=== PATIENT | female | born 1970 | race Caucasian/White ===

== ENCOUNTER 2016-11-01 10:23 | Emergency (ER) | payer BC ==
[2016-11-01 10:36] VITALS: BP 114/84
[2016-11-01 11:18] LABS: Urine Bacteria Absent (Absent); Urine Bilirubin Negative (Negative); Urine Glucose Negative (Negative); Urine Nitrite Negative (Negative)
--- NOTE | 2016-11-01 11:31 | ED ---
GI/ HPI - HPI Summary HPI Summary: Patient presents with urgency, frequency, burning upon urination for 3 days. She has been trying to treat it with yogurt. Dark colored, cloudy urine. Denies flank pain. Denies diaphoresis and chills. Denies known fever. No abnormal vaginal discharge reported. Otherwise healthy. She states she had this a few years ago and never had it treated and ended up with a kidney infection which needed IV abx. She denies any other symptoms. Afebrile on arrival to ED. - History of Current Complaint Chief Complaint: EDUrogenitalProblems Time Seen by Provider: 11/01/16 10:37 Stated Complaint: UTI-LIKE SYMPTOMS Hx Obtained From: Patient Onset/Duration: Started Days Ago Timing: Intermittent Severity: Moderate Current Severity: Moderate Pain Intensity: 4 Location of Pain: Suprapubic Pain Characteristics: Cramping Associated Signs and Symptoms: Positive: UTI Symptoms Aggravating Factor(s): Voiding Alleviating Factor(s): Nothing PMH/Surg Hx/FS Hx/Imm Hx Previously Healthy: Yes - Immunization History Hx Pertussis Vaccination: No Immunizations Up to Date: Unable to Obtain/Confirm Infectious Disease History: Denies: Traveled Outside the [place] in Last 30 Days - Social History Occupation: Employed Full-time Lives: With Family Alcohol Use: None Hx Substance Use: No Substance Use Type: Reports: None Hx Tobacco Use: No Smoking Status (MU): Unknown if Ever Smoked Review of Systems Constitutional: Negative Eyes: Negative Cardiovascular: Negative Respiratory: Negative Positive: burning, frequency, flank pain, incontinence, pain, urgency Musculoskeletal: Negative Skin: Negative Neurological: Negative All Other Systems Reviewed And Are Negative: Yes Physical Exam Triage Information Reviewed: Yes Vital Signs On Initial Exam: Initial Vitals Temp Pulse Resp BP Pulse Ox 98.3 F 61 20 114/84 98 11/01/16 10:34 11/01/16 10:34 11/01/16 10:34 11/01/16 10:34 11/01/16 10:34 Vital Signs Reviewed: Yes Appearance: Positive: Well-Appearing, No Pain Distress, Well-Nourished Skin: Positive: Warm, Skin Color Reflects Adequate Perfusion Head/Face: Positive: Normal Head/Face Inspection Eyes: Positive: Normal, JOYCE Respiratory/Lung Sounds: Positive: Clear to Auscultation, Breath Sounds Present Cardiovascular: Positive: Normal, RRR, Pulses are Symmetrical in both Upper and Lower Extremities Musculoskeletal: Positive: Normal Neurological: Positive: Normal, Sensory/Motor Intact, Alert, Oriented to Person Place, Time Psychiatric: Positive: Normal AVPU Assessment: Alert Diagnostics - Vital Signs Vital Signs Temp Pulse Resp BP Pulse Ox 11/01/16 10:34 98.3 F 61 20 114/84 98 - Laboratory Lab Results: Lab Results 11/01/16 Range/Units 11:00 Urine Color Yellow Urine Appearance Cloudy Urine pH 5.0 (5-9) Ur Specific Huntly 1.008 L (1.010-1.030) Urine Protein Negative (Negative) Urine Ketones Negative (Negative) Urine Blood 3+ H (Negative) Urine Nitrate Negative (Negative) Urine Bilirubin Negative (Negative) Urine Urobilinogen Negative (Negative) Ur Leukocyte Esterase 3+ H (Negative) Urine WBC (Auto) 3+(>20/hpf) H (Absent) Urine RBC (Auto) 3+(>10/hpf) H (Absent) Ur Squamous Epith Cells Present H (Absent) Urine Bacteria Absent (Absent) Urine Glucose Negative (Negative) Lab Statement: Any lab studies that have been ordered have been reviewed, and results considered in the medical decision making process. GIGU Course/Dx - Course Course Of Treatment: UA performed. WBC and leuks seen. Patient experiencing urgency, frequency and pain on urination. Dark urine noted. No abnormal vaginal discharge or bleeding. No CVA tenderness bilaterally. No previous UTI within last 6 months and no recent Augmentin use. Will treat for uncomplicated UTI and await sensitivities of urine culture. Will call if abx not sensitive to medication. Pyridium given for comfort. Return precautions and follow up with PCP. - Diagnoses Differential Diagnoses - Female: Urinary Tract Infection, Ureteral Calculi, Vaginitis Provider Diagnoses: Urinary tract infection Discharge - Discharge Plan Condition: Stable Disposition: HOME Prescriptions: Phenazopyridine TAB* [Pyridium 100 mg TAB*] 100 mg PO TID #12 tab MDD 3 Sulfamethox/Trimethoprim DS* [Bactrim DS 800/160 TAB*] 1 tab PO BID #10 tab MDD 2 Patient Education Materials: Urinary Tract Infection in Women (ED) Additional Instructions: Dx. Urinary Tract Infection Drink plenty of fluids. Supplement with cranberry or burgos juice. You may also take an over the counter cranberry supplement. If you have any questions about this, you may ask your pharmacist. If your symptoms have not improved in 1-2 days, if you develop fever, sweats or chills, please go to your emergency room, or call your PCP. Antibiotics were prescribed to you. Please take as directed. Supplement with over the counter probiotics on the opposite schedule of your antibiotic to prevent secondary infections. Do not take together as they may counteract each other. Pyridium: This medication is used to treat pain, burning, increased urination, and increased urge to urinate. These symptoms are usually caused by infection, injury, surgery, catheter, or other conditions that irritate the lower urinary tract. Pyridium will treat the symptoms of a urinary tract infection, but this medication does not treat the actual infection. Take the antibiotic that your doctor prescribes to treat your infection. Pyridium will most likely darken the color of your urine to an orange or red color. This is a normal effect and is not cause for alarm unless you have other symptoms such as pale or yellowed skin, fever, stomach pain, nausea, and vomiting. Darkened urine may also cause stains to your underwear, which may or may not be removed by laundering. It can also permanently stain soft contact lenses, and you should not wear them while taking this medicine.
--- NOTE | 2016-11-03 12:05 | PN ---
Progress Note - Progress Note Date of Service: 11/01/16 Note: patient diagnosed and treated for UTI at d/c with bactrim and pyridium. preliminary result show 25-50,000 growth of e. coli. placed on bactrim will wait for final culture sensitivity to determine if med change is necessary. no change needed at this time.
--- NOTE | 2016-11-04 09:05 | PN ---
Progress Note - Progress Note Date of Service: 11/04/16 Note: Patient urine cultures show that is resistant to bactrim. will change to Augmentin 500mg twice a day for 5 days. left vm explaining change.
--- NOTE | 2016-11-04 13:17 | PN ---
Progress Note - Progress Note Date of Service: 11/04/16 Note: spoke with patient and filled a script in [facility] via verbal for augmentin
== END 2016-11-01 12:06 | disposition home or self-care (01) ==
LOC: ED 10:23
DX: N39.0 Urinary tract infection, site not specified (principal); B96.20 Unspecified Escherichia coli [E. coli] as the cause of diseases classified elsewhere
CPT/HCPCS: 81003; 81015; 87077; 87086; 87186; 99282